=== PATIENT | female | born 1965 | race Two or more races ===

== ENCOUNTER 2018-05-08 11:30 | Emergency (ER) | payer OTHER ==
[~2018-05-08] VITALS: Ht 177.8 cm; Wt 93.4 kg
[~2018-05-08 11:30] MED LIST: CEFADROXIL500 MG PO; LEVAQUIN750 MG PO; TUSSI PRES-B L120 M1 PO
[2018-05-08] MEDS ORDERED: FLONASE16 GM (12:04)
== END 2018-05-08 17:52 | disposition home or self-care (01) ==
LOC: ER 11:30
DX: J40 Bronchitis, not specified as acute or chronic (principal)

== ENCOUNTER 2018-08-20 17:28 | Outpatient (CLI) | payer OTHER ==
[~2018-08-20 17:28] MED LIST changes: +FLONASE16 GM
== END 2018-08-20 17:36 | disposition home or self-care (01) ==
LOC: RAD 17:28
DX: J20.8 Acute bronchitis due to other specified organisms (principal)

== ENCOUNTER 2019-01-19 11:27 | Emergency (ER) | payer OTHER ==
[~2019-01-19] VITALS: Ht 177.8 cm; Wt 90.7 kg
== END 2019-01-19 16:11 | disposition home or self-care (01) ==
LOC: ER 11:27
DX: B34.9 Viral infection, unspecified (principal)

== ENCOUNTER 2021-07-18 20:39 | Emergency (ER) | payer OTHER ==
[~2021-07-18] VITALS: Ht 177.8 cm; Wt 96.2 kg
[2021-07-18] MEDS ORDERED: ENDOMETRIN100 MG VG (20:51)
[2021-07-18] MEDS ORDERED: ORTHO DF 3,7751 EACH PO (20:51)
[2021-07-18] MEDS ORDERED: LIPITOR20 MG PO (20:51)
== END 2021-07-18 21:33 | disposition home or self-care (01) ==
LOC: ER 20:39
DX: M25.472 Effusion, left ankle (principal)

== ENCOUNTER 2022-05-07 07:53 | Day surgery (SDC) | payer OTHER ==
[~2022-05-07] VITALS: Ht 175.3 cm; Wt 90.7 kg
[~2022-05-07 07:53] MED LIST changes: +ENDOMETRIN100 MG VG; +LIPITOR20 MG PO; +ORTHO DF 3,7751 EACH PO
[2022-05-07] MEDS ORDERED: NEURONTIN300 MG PO (11:04)
[2022-05-07] MEDS ORDERED: PERCOCET 5-3251 EACH PO (11:04)
[2022-05-07] MEDS ORDERED: KETO10TA2 PO (11:06)
[2022-05-07] MEDS ORDERED: DERMOPLAST PAIN78 GM TOP (11:06)
== END 2022-05-07 14:50 | disposition home or self-care (01) ==
LOC: CIR.AMB 07:53 → EDSTATUS 09:00 → SURG 09:00 → CIR.AMB 14:50
PROVIDERS: ATTEND Surgery
DX: K64.8 Other hemorrhoids (principal); Z20.822 Contact with and (suspected) exposure to COVID-19; E78.5 Hyperlipidemia, unspecified; Z86.16 Personal history of COVID-19; E66.9 Obesity, unspecified